=== PATIENT | female | born 1960 | race Caucasian/White ===

== ENCOUNTER 2018-10-13 08:02 | Day surgery (SDC) | payer BC ==
[2018-10-13 08:41] VITALS: BMI 27.1
[2018-10-13 09:48] VITALS: TEMP 97.2
[2018-10-13 10:37] VITALS: BP 116/73; PULSE 74
--- NOTE | 2018-10-16 16:17 | PATH ---
Surgical Pathology Report Patient Name: WAYNE CAMACHO [facility] Rec. #: [id number] /Age/Gender: 1960 (Age: 58) / F Account: [id number] Location: U-ENDOSCOPY Taken: 10/13/2018 Received: 10/13/2018 Reported: 10/16/2018 Physicians: Juan Hamlin M.D. Specimen(s) Received A: BX DUODENUM 2ND PORTION AND BULB B: BX ANTRUM C: BX POLYP SIGMOID COLON D: BX POLYP PROXIMAL TRANSVERSE COLON E: BX POLYP CECUM Clinical History Intestinal metaplasia, history of ulcer, history of colon polyp Postoperative diagnosis: Atrophic gastritis, colon polyps Final Diagnosis A. DUODENUM, SECOND PORTION AND BULB, BIOPSY: DUODENAL MUCOSA WITH MILD CHRONIC DUODENITIS AND PRESERVED VILLOUS ARCHITECTURE. B. ANTRUM, BIOPSY: GASTRIC ANTRAL MUCOSA WITH MILD TO MODERATE CHRONIC GASTRITIS AND INTESTINAL METAPLASIA. IMMUNOHISTOCHEMICAL STAIN FOR H. PYLORI IS NEGATIVE. C. SIGMOID COLON, POLYP, BIOPSY: HYPERPLASTIC POLYP. D. PROXIMAL TRANSVERSE COLON, POLYP, BIOPSY: COLONIC MUCOSA WITH SUPERFICIAL HYPERPLASTIC FEATURES. E. CECUM, POLYP, BIOPSY: POLYPOID COLONIC MUCOSA WITH PROMINENT LYMPHOID AGGREGATE. Electronically Signed Saira Hope M.D. Gross Description A. Received in formalin, labeled "second portion of duodenum and bulb" are 4 saez, irregular portions of soft tissue ranging from 0.2-0.4 cm. in greatest dimension. The specimens are submitted in toto in one cassette. B. Received in formalin, labeled "antrum" is a 1.0 x 0.9 x 0.1 cm aggregate of saez soft tissue fragments. The formalin is filtered and the specimen is entirely submitted in one cassette. C. Received in formalin, labeled "polyp sigmoid colon" are 2 saez, irregular portions of soft tissue measuring 0.2 and 0.3 cm. in greatest dimension. The specimens are submitted in toto in one cassette. D. Received in formalin, labeled "polyp proximal transverse colon" are 4 saez, irregular portions of soft tissue ranging from 0.1-0.2 cm. in greatest dimension. The specimens are submitted in toto in one cassette. E. Received in formalin, labeled "polyp cecum" is a saez, irregular portion of soft tissue measuring 0.3 cm. in greatest dimension. The The specimen is submitted in toto in one cassette. /10/13/2018 saudi10/13/2018
== END 2018-10-13 10:40 | disposition home or self-care (01) ==
LOC: JASU-ENDO 08:02
PROVIDERS: ATTEND Internal Medicine Gastroenterology
PROC: 0DBL8ZX Excision of Transverse Colon, Via Natural or Artificial Opening Endoscopic, Diagnostic (ICD-10-PCS; 2018-10-13)
PROC: 0DBN8ZX Excision of Sigmoid Colon, Via Natural or Artificial Opening Endoscopic, Diagnostic (ICD-10-PCS; 2018-10-13)
PROC: 0DB68ZX Excision of Stomach, Via Natural or Artificial Opening Endoscopic, Diagnostic (ICD-10-PCS; 2018-10-13)
PROC: 0DBH8ZX Excision of Cecum, Via Natural or Artificial Opening Endoscopic, Diagnostic (ICD-10-PCS; principal; 2018-10-13 09:00)
DX: Z12.11 Encounter for screening for malignant neoplasm of colon (principal); Z86.010 Personal history of colon polyps; D12.0 Benign neoplasm of cecum; D12.5 Benign neoplasm of sigmoid colon; D12.3 Benign neoplasm of transverse colon; K57.30 Diverticulosis of large intestine without perforation or abscess without bleeding; K64.8 Other hemorrhoids; Z80.0 Family history of malignant neoplasm of digestive organs; K29.80 Duodenitis without bleeding
CPT/HCPCS: 88305-TC; 88342-TC

== ENCOUNTER 2020-10-31 05:57 | Day surgery (SDC) | payer OTHER, BC ==
[2020-10-29 17:48] VITALS: BMI 28.1
[2020-10-31] MEDS ORDERED: DEXAMETHASONE SOD PHOSPHATE/PF 10 MG/ML SDV ONE (07:24)
[2020-10-31] MEDS ORDERED: BUPIVACAINE HCL/PF 0.25% (2.5MG/ML) 10 ML VIAL ONE (07:25)
[2020-10-31] MEDS ORDERED: LIDOCAINE HCL/PF 1% SDV 5ML VIAL ONE (07:27)
[2020-10-31] MEDS ORDERED: IOHEXOL 180 MG/1 ML ML IJ ONE (08:14)
[2020-10-31] MEDS ORDERED: LIDOCAINE HCL 1% PRESERVATIVE FREE - 30ML VIAL EP ONE (08:14)
[2020-10-31] MEDS ORDERED: DEXAMETHASONE SOD PHOSPHATE 10 MG/1 ML VIAL IVPUSH ONE (08:14)
[2020-10-31 09:20] VITALS: BP 132/88; PULSE 80; TEMP 97.5
== END 2020-10-31 09:05 | disposition home or self-care (01) ==
LOC: JASU-SURG 05:57
PROVIDERS: ATTEND Pain Medicine Pain Medicine
PROC: 3E0R33Z Introduction of Anti-inflammatory into Spinal Canal, Percutaneous Approach (ICD-10-PCS; 2020-10-31)
PROC: 3E0R3BZ Introduction of Anesthetic Agent into Spinal Canal, Percutaneous Approach (ICD-10-PCS; principal; 2020-10-31 08:00)
DX: M54.16 Radiculopathy, lumbar region (principal)
CPT/HCPCS: 76000-TC-FY; J1100

== ENCOUNTER 2020-11-21 05:18 | Day surgery (SDC) | payer OTHER, BC ==
[2020-11-20 08:45] VITALS: BMI 28.3
[2020-11-21] MEDS ORDERED: TRIAMCINOLONE ACET 40MG/1ML VIAL ONE (07:21)
[2020-11-21] MEDS ORDERED: DEXAMETHASONE SOD PHOSPHATE/PF 10 MG/ML SDV ONE ×2 (07:21→07:25)
[2020-11-21] MEDS ORDERED: LIDOCAINE HCL/PF 1% SDV 5ML VIAL ONE (07:22)
[2020-11-21] MEDS ORDERED: BUPIVACAINE HCL/PF 0.75% 10 ML VIAL ONE (07:24)
[2020-11-21] MEDS ORDERED: SODIUM CHLORIDE 0.9% P/F 10 ML VIAL IJ ONE (07:28)
[2020-11-21] MEDS ORDERED: IOHEXOL 180 MG/1 ML ML IJ ONE (08:29)
[2020-11-21] MEDS ORDERED: LIDOCAINE HCL 1% PRESERVATIVE FREE - 30ML VIAL IJ ONE (08:29)
[2020-11-21 09:30] VITALS: BP 119/63; PULSE 72; TEMP 97.8
== END 2020-11-21 09:15 | disposition home or self-care (01) ==
LOC: JASU-SURG 05:18
PROVIDERS: ATTEND Pain Medicine Pain Medicine
PROC: 3E0R33Z Introduction of Anti-inflammatory into Spinal Canal, Percutaneous Approach (ICD-10-PCS; 2020-11-21)
PROC: 3E0R3BZ Introduction of Anesthetic Agent into Spinal Canal, Percutaneous Approach (ICD-10-PCS; principal; 2020-11-21 08:00)
DX: M54.16 Radiculopathy, lumbar region (principal)
CPT/HCPCS: 76000-TC-FY

== ENCOUNTER 2021-04-10 04:43 | Day surgery (SDC) | payer OTHER ==
[2021-04-08 16:40] VITALS: BMI 28.3
[2021-04-10] MEDS ORDERED: DEXAMETHASONE SOD PHOSPHATE 10 MG/1 ML VIAL ONE ×2 (07:41→11:16)
[2021-04-10] MEDS ORDERED: LIDOCAINE HCL/PF 1% SDV 5ML VIAL ONE (07:41)
[2021-04-10] MEDS ORDERED: BUPIVACAINE HCL/PF 0.5% (5MG/ML) 10 ML VIAL ONE (11:16)
[2021-04-10] MEDS ORDERED: LIDOCAINE HCL 1% PRESERVATIVE FREE - 30ML VIAL IJ ONE ×2 (11:30→11:32)
[2021-04-10] MEDS ORDERED: IOHEXOL 180 MG/1 ML ML IJ ONE ×3 (11:32→11:42)
[2021-04-10] MEDS ORDERED: DEXAMETHASONE SOD PHOSPHATE 10 MG/1 ML VIAL IM ONE ×3 (11:33→11:43)
[2021-04-10 13:31] VITALS: BP 131/75; PULSE 73; TEMP 98.4
== END 2021-04-10 12:15 | disposition home or self-care (01) ==
LOC: JASU-SURG 04:43
PROVIDERS: ATTEND Pain Medicine Pain Medicine
PROC: 3E0S33Z Introduction of Anti-inflammatory into Epidural Space, Percutaneous Approach (ICD-10-PCS; 2021-04-10)
PROC: 3E0S3BZ Introduction of Anesthetic Agent into Epidural Space, Percutaneous Approach (ICD-10-PCS; principal; 2021-04-10 09:45)
DX: M54.16 Radiculopathy, lumbar region (principal)
CPT/HCPCS: 76000-TC-FY; J1100

== ENCOUNTER 2021-12-04 04:12 | Day surgery (SDC) | payer BC ==
[2021-12-03 08:12] VITALS: BMI 29.2
[2021-12-04] MEDS ORDERED: LIDOCAINE HCL/PF 1% SDV 5ML VIAL ONE (07:21)
[2021-12-04] MEDS ORDERED: DEXAMETHASONE SOD PHOSPHATE 10 MG/1 ML VIAL ONE (07:21)
[2021-12-04] MEDS ORDERED: IOHEXOL 180 MG/1 ML ML IJ ONE (10:13)
[2021-12-04] MEDS ORDERED: DEXAMETHASONE SOD PHOSPHATE 10 MG/1 ML VIAL IVPUSH ONE (10:14)
[2021-12-04] MEDS ORDERED: LIDOCAINE HCL 1% PRESERVATIVE FREE - 30ML VIAL IJ ONE (10:14)
[2021-12-04 11:09] VITALS: BP 128/63; PULSE 79; TEMP 98.7
== END 2021-12-04 11:00 | disposition home or self-care (01) ==
LOC: JASU-SURG 04:12
PROVIDERS: ATTEND Pain Medicine Pain Medicine
PROC: 3E0R33Z Introduction of Anti-inflammatory into Spinal Canal, Percutaneous Approach (ICD-10-PCS; 2021-12-04)
PROC: B01BZZZ Fluoroscopy of Spinal Cord (ICD-10-PCS; 2021-12-04)
PROC: 3E0R3BZ Introduction of Anesthetic Agent into Spinal Canal, Percutaneous Approach (ICD-10-PCS; principal; 2021-12-04 09:30)
DX: M54.16 Radiculopathy, lumbar region (principal)
CPT/HCPCS: 76000-TC-FY; J1100

== ENCOUNTER 2022-04-30 04:06 | Day surgery (SDC) | payer BC ==
[2022-04-27 12:52] VITALS: BMI 29.2
[2022-04-30] MEDS ORDERED: LIDOCAINE HCL/PF 1% SDV 5ML VIAL ONE (07:10)
[2022-04-30] MEDS ORDERED: DEXAMETHASONE SOD PHOSPHATE 10 MG/1 ML VIAL ONE (07:10)
[2022-04-30] MEDS ORDERED: DEXAMETHASONE SOD PHOSPHATE 10 MG/1 ML VIAL IVPUSH ONE (09:22)
[2022-04-30] MEDS ORDERED: IOHEXOL 180 MG/1 ML ML IJ ONE (09:24)
[2022-04-30] MEDS ORDERED: LIDOCAINE 1% P/F 10 MG/ML VIAL INF ONE ×2 (09:25→09:28)
[2022-04-30 09:58] VITALS: BP 120/58; PULSE 73; RESP 20; TEMP 98.2
== END 2022-04-30 10:56 | disposition home or self-care (01) ==
LOC: JASU-SURG 04:06
PROVIDERS: ATTEND Pain Medicine Pain Medicine
PROC: 3E0R3BZ Introduction of Anesthetic Agent into Spinal Canal, Percutaneous Approach (ICD-10-PCS; 2022-04-30)
PROC: B01BYZZ Fluoroscopy of Spinal Cord using Other Contrast (ICD-10-PCS; 2022-04-30)
PROC: 3E0R33Z Introduction of Anti-inflammatory into Spinal Canal, Percutaneous Approach (ICD-10-PCS; principal; 2022-04-30 08:30)
DX: M54.16 Radiculopathy, lumbar region (principal)
CPT/HCPCS: 76000-TC-FY; J1100

== ENCOUNTER 2022-12-24 04:07 | Day surgery (SDC) | payer BC, OTHER ==
[~2022-12-24 04:07] MED LIST: DEXAMETHASONE SOD PHOSPHATE 10 MG/1 ML VIAL IM ONE; IOHEXOL 180 MG/1 ML ML IJ ONE; LIDOCAINE HCL 1% PRESERVATIVE FREE - 30ML VIAL IJ ONE
[2022-12-24] MEDS ORDERED: LIDOCAINE HCL/PF 1% SDV 5ML VIAL ONE (07:21)
[2022-12-24] MEDS ORDERED: DEXAMETHASONE SOD PHOSPHATE 10 MG/1 ML VIAL ONE (07:22)
[2022-12-24 08:48] VITALS: RESP 20
[2022-12-24] MEDS ORDERED: LIDOCAINE HCL 1% PRESERVATIVE FREE - 30ML VIAL IJ ONE (10:14)
[2022-12-24] MEDS ORDERED: IOHEXOL 180 MG/1 ML ML IJ ONE ×2 (10:16)
[2022-12-24] MEDS ORDERED: DEXAMETHASONE SOD PHOSPHATE 10 MG/1 ML VIAL IM ONE (10:21)
[2022-12-24 10:43] VITALS: BP 130/70; PULSE 72; TEMP 97.7
[2022-12-24] MEDS ORDERED: ACETAMINOPHEN 500 MG TABLET (FP) PO PRN (12:16)
== END 2022-12-24 11:30 | disposition home or self-care (01) ==
LOC: JASU-SURG 04:07
PROVIDERS: ATTEND Pain Medicine Pain Medicine
PROC: 3E0R3BZ Introduction of Anesthetic Agent into Spinal Canal, Percutaneous Approach (ICD-10-PCS; 2022-12-24)
PROC: 3E0R33Z Introduction of Anti-inflammatory into Spinal Canal, Percutaneous Approach (ICD-10-PCS; principal; 2022-12-24 10:00)
DX: M54.16 Radiculopathy, lumbar region (principal)
CPT/HCPCS: 76000-TC-FY; J1100

== ENCOUNTER 2023-10-12 04:15 | Inpatient (IN) | payer BC, OTHER ==
[2023-10-04 17:01] VITALS: BMI 30.5
[2023-10-12] MEDS ORDERED: GENTAMICIN SO4 80 MG/2 ML VIAL ONE (07:13)
[2023-10-12] MEDS ORDERED: THROMBIN (BOVINE) 5,000 UNIT VIAL TP ONE ×3 (07:13→11:02)
[2023-10-12] MEDS ORDERED: BACITRACIN ZINC 15 GM TUBE TOPICAL OINTMENT ONE (07:14)
[2023-10-12] MEDS ORDERED: VANCOMYCIN 1,000 MG VIAL (RESTRICTED TO ID ONLY) ONE ×2 (07:20→08:17)
[2023-10-12] MEDS ORDERED: BUPIVACAINE HCL/PF 0.5% (5MG/ML) 10 ML VIAL ONE (07:21)
[2023-10-12] MEDS ORDERED: ePHEDrine SULFATE 50 MG/1 ML AMPULE ONE ×2 (07:42→12:27)
[2023-10-12] MEDS ORDERED: SUCCINYLCHOLINE CHLORIDE 200 MG/10 ML SYRINGE ONE (07:42)
[2023-10-12] MEDS ORDERED: PROPOFOL 60 ML ONE ×2 (07:43→08:56)
[2023-10-12] MEDS ORDERED: ONDANSETRON 4 MG/2 ML VIAL ONE ×2 (07:46→12:02)
[2023-10-12] MEDS ORDERED: DEXAMETHASONE SOD PHOSPHATE 4 MG/1 ML VIAL ONE (07:46)
[2023-10-12] MEDS ORDERED: KETOROLAC TROMETHAMINE 30 MG/1 ML VIAL ONE (07:46)
[2023-10-12] MEDS ORDERED: ceFAZolin SODIUM 1 GM VIAL ONE (07:46)
[2023-10-12] MEDS ORDERED: SODIUM CHLORIDE 0.9% P/F 10 ML VIAL IJ ONE ×2 (07:46→12:27)
[2023-10-12] MEDS ORDERED: TRANEXAMIC ACID 1000 MG/10 ML VIAL ONE ×2 (07:46→11:48)
[2023-10-12] MEDS ORDERED: LIDOCAINE HCL/PF 2% SDV 5ML VIAL ONE (07:46)
[2023-10-12] MEDS ORDERED: MIDAZOLAM HCL 2 MG/2 ML SINGLE DOSE VIAL ONE (07:51)
[2023-10-12] MEDS ORDERED: PROPOFOL 40 ML ONE (07:52)
[2023-10-12] MEDS ORDERED: HYDROmorphone HCl 2 MG/ML VIAL ONE (07:55)
[2023-10-12] MEDS ORDERED: GLYCOPYRROLATE 0.2 MG/1 ML VIAL ONE (07:56)
[2023-10-12] MEDS ORDERED: KETAMINE HCL 200 MG/20 ML VIAL ONE (07:56)
[2023-10-12] MEDS ORDERED: ACETAMINOPHEN INJECTION 100 ML IVPB ONE (08:02)
[2023-10-12] MEDS: VANCOMYCIN 1,000 MG VIAL (RESTRICTED TO ID ONLY) IVPB ONE ×4 (08:05→09:28)
[2023-10-12] MEDS ORDERED: ROCURONIUM BROMIDE 50 MG/5 ML SYRINGE ONE (08:24)
[2023-10-12] MEDS ORDERED: MAGNESIUM SULF 50% (8.12 MEQ/2 ML-1 GM VIAL) ONE (08:34)
[2023-10-12] MEDS: THROMBIN (BOVINE) 5,000 UNIT VIAL TP ONE ×3 (09:28)
[2023-10-12] MEDS ORDERED: PROPOFOL 20 ML ONE (09:28)
[2023-10-12] MEDS ORDERED: PROPOFOL 80 ML ONE (10:36)
[2023-10-12] MEDS ORDERED: PHENYLEPHRINE HCL 10 MG/1 ML SINGLE DOSE VIAL ONE (10:39)
[2023-10-12] MEDS: BUPIVACAINE HCL/PF 0.5% (5 MG/ML) 30 ML VIAL IJ ONE (12:00)
[2023-10-12] MEDS ORDERED: ONDANSETRON 4 MG/2 ML VIAL IVPUSH PRN ×2 (12:22→12:37)
[2023-10-12] MEDS ORDERED: LIDOCAINE HCL 2% JELLY 6 ML TP ONE (12:23)
[2023-10-12] MEDS ORDERED: BISACODYL 10 MG SUPP.RECT RC PRN (12:37)
[2023-10-12] MEDS ORDERED: D5-1/2NS+20 MEQ KCL - 1,000 ML IV SCH (12:45)
[2023-10-12] MEDS: diazePAM 5 MG TABLET PO SCH (14:23)
[2023-10-12 14:26] LABS: HEMATOCRIT 39.7 % (32.4-45.2); HEMOGLOBIN 13.6 GM/dL (10.7-15.3); MCH 30.2 pg (25.7-33.7); MCHC 34.3 g/dl (32.0-36.0); MEAN CELL VOLUME 88.1 fl (80-96); MEAN PLT VOLUME 8.5 fl (7.5-11.1); PLATELET COUNT 220 10^3/uL (134-434); RBC 4.51 M/mm3 (3.60-5.2); RDW 13.6 % (11.6-15.6); WHITE BLOOD COUNT 9.5 K/mm3 (4.0-10.0)
[2023-10-12] MEDS ORDERED: HYDROmorphone *PCA* 10MG/50ML DISP.SYRIN ONE (14:35)
[2023-10-12 14:45] LABS: POTASSIUM 3.9 mmol/L (3.5-5.1)
[2023-10-12 14:47] LABS: BLOOD UREA NITROGEN 12.1 mg/dL (7-18); CALCIUM 8.9 mg/dL (8.5-10.1)
[2023-10-12 14:50] LABS: CREATININE 0.9 mg/dL (0.55-1.3)
[2023-10-12] MEDS: HYDROmorphone *PCA* 10MG/50ML DISP.SYRIN PCA SCH (14:54)
[2023-10-12] MEDS: D5-1/2NS+20 MEQ KCL - 20 MEQ/1,000 ML INFUS.BAG IV SCH (14:56)
[2023-10-12] MEDS: DOCUSATE SODIUM 100 MG CAPSULE (FP) PO SCH (16:36)
[2023-10-12] MEDS: LACTATED RINGERS SOLUTION 1,000 ML IV SCH (16:45)
[2023-10-12] MEDS: VANCOMYCIN/WATER FOR INJ (PEG) 1,000 MG/200 ML BAG IVPB SCH ×2 (16:46→21:30)
[2023-10-12] MEDS: ACETAMINOPHEN 325 MG TABLET (FP) PO PRN (21:03)
[2023-10-12] MEDS: ROSUVASTATIN CA 5 MG TABLET PO SCH (21:29)
[2023-10-12] MEDS: PARoxetine HCL 10 MG TABLET PO SCH (21:30)
[2023-10-12] MEDS: diazePAM 5 MG TABLET PO ONE (22:32)
[2023-10-13] MEDS: diazePAM 5 MG TABLET PO SCH ×2 (05:05→22:20)
[2023-10-13] MEDS ORDERED: oxyCODONE HCL 5 MG TABLET PO PRN (09:59)
[2023-10-13] MEDS: oxyCODONE HCL 10 MG SUSTAINED ACTING TABLET PO SCH (10:46)
[2023-10-13] MEDS: ACETAMINOPHEN 500 MG TABLET (FP) PO SCH (10:48)
[2023-10-13] MEDS: oxyCODONE HCL 5 MG TABLET PO PRN (12:46)
[2023-10-13] MEDS: HYDROmorphone HCl 2 MG/ML VIAL IVPB PRN (20:11)
[2023-10-14 09:53] LABS: BASO % 0.3 % (0-2.0); HEMATOCRIT 31.4 % (32.4-45.2); HEMOGLOBIN 10.5 GM/dL (10.7-15.3); LYMPH % 24.8 % (8-40); MCH 29.8 pg (25.7-33.7); MCHC 33.6 g/dl (32.0-36.0); MEAN CELL VOLUME 88.8 fl (80-96); MEAN PLT VOLUME 8.7 fl (7.5-11.1); MONO % 10.4 % (3.8-10.2); NEUT % 63.5 % (42.8-82.8); PLATELET COUNT 167 10^3/uL (134-434); RBC 3.53 M/mm3 (3.60-5.2); RDW 13.3 % (11.6-15.6); WHITE BLOOD COUNT 9.3 K/mm3 (4.0-10.0)
[2023-10-14 10:13] LABS: POTASSIUM 3.9 mmol/L (3.5-5.1)
[2023-10-14 10:15] LABS: BLOOD UREA NITROGEN 6.6 mg/dL (7-18)
[2023-10-14 10:31] LABS: CREATININE 0.6 mg/dL (0.55-1.3)
[2023-10-14 12:11] LABS: EPI CELLS 14 /uL (0-25.1); HYALINE CASTS 0 /uL (0-3.1); URINE APPEARANCE CLEAR; URINE BACTERIA 27 /uL (0-1359); URINE BILIRUBIN NEGATIVE (NEGATIVE); URINE COLOR YELLOW; URINE GLUCOSE (UA) NEGATIVE (NEGATIVE); URINE KETONE NEGATIVE (NEGATIVE); URINE LEUK ESTERASE 1+ (NEGATIVE); URINE NITRITE NEGATIVE (NEGATIVE); URINE PROTEIN NEGATIVE (NEGATIVE); URINE RBC 8 /uL (0-23.9); URINE UROBILINOGEN 0.2 mg/dL (0.2-1.0); URINE WBC 55 /uL (0-25.8)
[2023-10-15] MEDS: ACETAMINOPHEN 500 MG TABLET (FP) PO SCH (18:51)
[2023-10-16] MEDS: MAGNESIUM CITRATE 300 ML BOTTLE PO ONE (11:39)
[2023-10-16] MEDS: diphenhydrAMINE HCL 25 MG CAPSULE (FP) PO ONE (21:16)
[2023-10-16 21:34] VITALS: RESP 20
[2023-10-17 06:00] VITALS: BP 120/65; PULSE 80; TEMP 98.9
[2023-10-17] MEDS: MAGNESIUM HYDROX 2400MG/30ML ORAL SUSPENSION 30 ML CUP PO ONE (09:21)
[2023-10-17] MEDS: diphenhydrAMINE HCL 25 MG CAPSULE (FP) PO PRN (09:22)
[2023-10-17 10:42] LABS: HEMATOCRIT 38.4 % (32.4-45.2); HEMOGLOBIN 12.8 GM/dL (10.7-15.3); MCH 29.6 pg (25.7-33.7); MCHC 33.3 g/dl (32.0-36.0); MEAN CELL VOLUME 88.9 fl (80-96); MEAN PLT VOLUME 8.5 fl (7.5-11.1); PLATELET COUNT 250 10^3/uL (134-434); RBC 4.32 M/mm3 (3.60-5.2); RDW 13.2 % (11.6-15.6)
== END 2023-10-17 14:50 | disposition home or self-care (01) | DRG 304 ==
LOC: J2C 04:15 → J8W 15:40
PROVIDERS: ADMIT Neurological Surgery; ATTEND Neurological Surgery
PROC: 0SG10J1 Fusion of 2 or more Lumbar Vertebral Joints with Synthetic Substitute, Posterior Approach, Posterior Column, Open Approach (ICD-10-PCS; 2023-10-12)
PROC: 0SB20ZZ Excision of Lumbar Vertebral Disc, Open Approach (ICD-10-PCS; 2023-10-12)
PROC: 01NB0ZZ Release Lumbar Nerve, Open Approach (ICD-10-PCS; 2023-10-12)
PROC: 0SP00AZ Removal of Interbody Fusion Device from Lumbar Vertebral Joint, Open Approach (ICD-10-PCS; 2023-10-12)
PROC: 4A11X4G Monitoring of Peripheral Nervous Electrical Activity, Intraoperative, External Approach (ICD-10-PCS; 2023-10-12)
PROC: 0SG00AJ Fusion of Lumbar Vertebral Joint with Interbody Fusion Device, Posterior Approach, Anterior Column, Open Approach (ICD-10-PCS; principal; 2023-10-12 08:00)
DX: M43.16 Spondylolisthesis, lumbar region (principal); M48.062 Spinal stenosis, lumbar region with neurogenic claudication; M54.16 Radiculopathy, lumbar region; G96.198 Other disorders of meninges, not elsewhere classified; K21.9 Gastro-esophageal reflux disease without esophagitis; E78.5 Hyperlipidemia, unspecified
CPT/HCPCS: 36415; 72100-TC-FY; 76000-TC-FY; 80048; 80051; 81003; 82565; 84520; 85025; 85027; 86850; 86900; 86901; 87086; 88300-TC; 88304-TC; 94010; 94760; 97116-GP; 97161-GP; C1713; C1889; J0131

== ENCOUNTER 2024-04-27 03:55 | Day surgery (SDC) | payer BC ==
[2024-04-26 08:52] VITALS: BMI 28.8
[2024-04-27] MEDS ORDERED: DEXAMETHASONE SOD PHOSPHATE 10 MG/1 ML VIAL ONE ×2 (07:17→11:20)
[2024-04-27] MEDS ORDERED: LIDOCAINE HCL/PF 1% SDV 5ML VIAL ONE ×2 (07:17→11:20)
[2024-04-27 09:19] VITALS: RESP 18; TEMP 97.7
[2024-04-27 14:16] VITALS: BP 126/72; PULSE 72
[2024-04-27] MEDS ORDERED: ACETAMINOPHEN 500 MG TABLET (FP) PO PRN (15:32)
== END 2024-04-27 11:37 | disposition home or self-care (01) ==
LOC: JASU-SURG 03:55
PROVIDERS: ATTEND Pain Medicine Pain Medicine
PROC: 3E0R3BZ Introduction of Anesthetic Agent into Spinal Canal, Percutaneous Approach (ICD-10-PCS; 2024-04-27)
PROC: 00HU33Z Insertion of Infusion Device into Spinal Canal, Percutaneous Approach (ICD-10-PCS; 2024-04-27)
PROC: 3E0R33Z Introduction of Anti-inflammatory into Spinal Canal, Percutaneous Approach (ICD-10-PCS; principal; 2024-04-27 11:12)
DX: M54.16 Radiculopathy, lumbar region (principal)
CPT/HCPCS: 76000-TC-FY; J1100

== ENCOUNTER 2024-06-01 03:54 | Day surgery (SDC) | payer BC ==
[2024-05-28 17:09] VITALS: BMI 28.8
[2024-06-01] MEDS ORDERED: LIDOCAINE HCL/PF 1% SDV 5ML VIAL ONE (07:14)
[2024-06-01] MEDS ORDERED: DEXAMETHASONE SOD PHOSPHATE 10 MG/1 ML VIAL ONE (07:15)
[2024-06-01 11:26] VITALS: RESP 20
[2024-06-01] MEDS: LIDOCAINE HCL 1% PRESERVATIVE FREE - 30ML VIAL IJ ONE (12:32)
[2024-06-01] MEDS: IOHEXOL 180 MG/1 ML ML IJ ONE ×2 (12:35)
[2024-06-01] MEDS: DEXAMETHASONE SOD PHOSPHATE 10 MG/1 ML VIAL IM ONE ×2 (12:40)
[2024-06-01] MEDS ORDERED: ACETAMINOPHEN 500 MG TABLET (FP) PO PRN (12:41)
[2024-06-01 12:58] VITALS: BP 142/73; PULSE 85; TEMP 97.3
== END 2024-06-01 13:01 | disposition home or self-care (01) ==
LOC: JASU-SURG 03:54
PROVIDERS: ATTEND Pain Medicine Pain Medicine
PROC: 3E0R3BZ Introduction of Anesthetic Agent into Spinal Canal, Percutaneous Approach (ICD-10-PCS; 2024-06-01)
PROC: 3E0R33Z Introduction of Anti-inflammatory into Spinal Canal, Percutaneous Approach (ICD-10-PCS; principal; 2024-06-01 12:45)
DX: M54.16 Radiculopathy, lumbar region (principal)
CPT/HCPCS: 76000-TC-FY; J1100